=== PATIENT | female | born 1995 | race Caucasian/White ===

== ENCOUNTER 2022-05-16 08:00 | Outpatient (CLI) | payer MEDICAID ==
[2022-05-16 22:53] LABS: BACTERIAL VAGINOSIS DNA POSITIVE (NEGATIVE); CANDIDA GLABRATA DNA NEGATIVE (NEGATIVE); CANDIDA GROUP DNA POSITIVE (NEGATIVE); CANDIDA KRUSEI DNA NEGATIVE (NEGATIVE); TRICHOMONAS VAGINALIS DNA NEGATIVE (NEGATIVE)
== END 2022-05-16 23:59 | disposition home or self-care (01) ==
LOC: LAB.WCP 08:00
PROVIDERS: ATTEND Nurse Practitioner
DX: N76.0 Acute vaginitis (principal)
CPT/HCPCS: 81514

== ENCOUNTER 2023-09-30 09:58 | Outpatient (CLI) | payer BC ==
--- NOTE | 2023-09-30 12:07 | XRAY Report ---
PROCEDURE: Knee 4+V LT INDICATIONS: LEG PAIN,LEFT TECHNIQUE: 4 views of the knee(s) were acquired. COMPARISON: None. FINDINGS: Bones: No fractures or dislocations. Joint spaces are well preserved. No significant patellar sublux ation. No suspicious bony lesions. Soft tissues: No knee joint effusion. No suspicious soft tissue calcifications or masses. IMPRESSION: Unremarkable radiographic examination of left knee. Reviewed by: Jerry Coronel MD on 09/30/2023 12:06 PM PDT Approved by: Jerry Coronel MD on 09/30/2023 12:06 PM PDT Station ID: [id number]
[2023-09-30 14:59] LABS: BASOPHILS # (AUTO) 0.1 10^3/uL (0.0-0.1); BASOPHILS % (AUTO) 0.9 %; EOSINOPHILS # (AUTO) 0.2 10^3/uL (0.0-0.7); EOSINOPHILS % (AUTO) 2.1 %; HCT - HEMATOCRIT 42.2 % (37.0-47.0); HGB - HEMOGLOBIN 13.7 g/dL (12.0-16.0); LYMPHOCYTES % (AUTO) 25.8 %; MEAN CORPUSCULAR HEMOGLOBIN 32.6 pg (27.0-31.0); MEAN CORPUSCULAR HGB CONC 32.5 g/dL (32.0-36.0); MEAN CORPUSCULAR VOLUME 100.5 fL (81.0-99.0); MONOCYTES # (AUTO) 0.7 10^3/uL (0.0-1.0); MONOCYTES % (AUTO) 8.6 %; NEUTROPHILS # (AUTO) 4.8 10^3/uL (1.5-6.6); NEUTROPHILS % (AUTO) 62.2 %; PLT - PLATELET COUNT 291 10^3/uL (130-450); RED CELL DISTRIBUTION WIDTH 11.8 % (12.0-15.0); WHITE BLOOD COUNT 7.7 x10^3/uL (4.8-10.8)
[2023-09-30 16:17] LABS: ALBUMIN 4.5 g/dL (3.2-5.5); ALKALINE PHOSPHATASE 37 IU/L (42-121); ALT ALANINE AMINOTRANSFERASE 10 IU/L (10-60); AST ASPARTATE AMINOTRANSFERASE 20 IU/L (10-42); BILIRUBIN,TOTAL 0.5 mg/dL (0.2-1.0); BUN - BLOOD UREA NITROGEN 11 mg/dL (6-20); CARBON DIOXIDE - CO2 29 mmol/L (21-32); CHLORIDE 103 mmol/L (101-111); CHOL/HDL RATIO 2.1 (<4.4); CHOLESTEROL 174 mg/dL; CREATININE 0.7 mg/dL (0.6-1.3); GFR - MDRD 98 (>89); GLUCOSE 78 mg/dL (74-104); HDL CHOLESTEROL 82 mg/dL; LDL CHOLESTEROL,CALCULATED 75 mg/dL; LDL/HDL RATIO 0.9 (<4.4); POTASSIUM 4.5 mmol/L (3.5-4.5); SODIUM 136 mmol/L (135-145); TOTAL PROTEIN 6.8 g/dL (6.4-8.9); TRIGLYCERIDES 83 mg/dL (48-352); VLDL CHOLESTEROL 17 mg/dL
== END 2023-09-30 09:59 | disposition home or self-care (01) ==
LOC: DI.S 09:58
PROVIDERS: ATTEND Physician Assistant Medical
DX: M79.605 Pain in left leg (principal); Z00.00 Encounter for general adult medical examination without abnormal findings; Z13.220 Encounter for screening for lipoid disorders; R53.83 Other fatigue
CPT/HCPCS: 36415; 80053; 80061; 83721; 84443; 85025

== ENCOUNTER 2024-01-29 15:41 | Outpatient (CLI) | payer BC ==
--- NOTE | 2024-01-29 16:55 | MRI Report ---
PROCEDURE: Knee LT WO INDICATIONS: LOCKED KNEE TECHNIQUE: Noncontrast sagittal PD fast spin echo and T2 fast spin echo with fat saturation, sagittal 3-D gradie nt sequence with fat saturation; coronal T1 spin echo and PD fast spin echo with fat saturation, and axial PD fast spin echo with fat saturation through the knee. COMPARISON: Left knee radiograph dated 09/30/2023. FINDINGS: Image quality: Excellent. Menisci: Bucket-handle tear involving medial meniscus is seen with centrally displaced torn medial me niscal fragment into the intercondylar space anterior to the PCL. The lateral meniscus is intact. Per ipheral displacement of medial meniscus bowing medial collateral ligament is seen. The meniscal root ligaments appear intact. Cruciate ligaments: The anterior cruciate ligament is mildly thickened. The posterior cruciate ligam ent is intact. Medial structures: The medial collateral ligament appears mildly thickened. Portions of the pes anse rinus tendons appear normal. No abnormal bursal fluid. Lateral structures: The lateral collateral ligament, long and short heads of the biceps femoris tend on appear intact. The popliteus tendon appears normal. Iliotibial band appears normal. Anterior structures: The quadriceps and patellar tendons appear intact. Patellar alignment is alina l. No femoral trochlear dysplasia or ventral trochlear prominence. No edema in the infrapatellar fa t pad. Bones and cartilage: No bone marrow contusions or fractures. The cartilage of the medial and latera l femorotibial compartments, as well as the patellofemoral compartment, appears normal in thickness. Joint space: There is moderate knee joint fluid. No Suarez's cyst. Normal appearing synovial plicae are incidentally noted. IMPRESSION: 1. Bucket-handle type tear involving medial meniscus with centrally displaced medial meniscal fragmen t into the intercondylar notch. The lateral meniscus is intact. 2. Sprain of anterior cruciate ligament. No ACL rupture. The PCL is intact. 3. Low-grade proximal MCL sprain. 4. No marrow edema. No fracture or dislocation. Articulating cartilage is intact. Moderate joint effu arcelia, no loose bodies. Reviewed by: Jerry Simon MD on 01/29/2024 4:53 PM PDT Approved by: Jerry Simon MD on 01/29/2024 4:53 PM PDT Station ID: [id number]
== END 2024-01-29 15:42 | disposition home or self-care (01) ==
LOC: DI 15:41
PROVIDERS: ATTEND Orthopaedic Surgery
DX: S83.242A Other tear of medial meniscus, current injury, left knee, initial encounter (principal); S83.412A Sprain of medial collateral ligament of left knee, initial encounter; M25.462 Effusion, left knee